=== PATIENT | female | born 1995 | race Caucasian/White ===

== ENCOUNTER 2017-12-03 19:19 | Emergency (ER) | payer SELFPAY ==
[~2017-12-03] VITALS: Ht 172.7 cm; Wt 184.6 kg
[2017-12-03] MEDS ORDERED: OMNICEF300 MG PO (20:54)
== END 2017-12-03 21:15 | disposition home or self-care (01) ==
LOC: ED 19:19 → EDBD 19:24 → ED 21:15
DX: H65.93 Unspecified nonsuppurative otitis media, bilateral (principal); J32.9 Chronic sinusitis, unspecified; F10.10 Alcohol abuse, uncomplicated

== ENCOUNTER 2018-01-29 23:53 | Emergency (ER) | payer OTHER ==
[~2018-01-29] VITALS: Ht 172.7 cm; Wt 2.1 kg
[~2018-01-29 23:53] MED LIST: OMNICEF300 MG PO
[2018-01-30] MEDS ORDERED: AMOXICILLIN500 M2 PO (01:10)
[2018-01-30] MEDS ORDERED: ZOFRAN ODT4 MG SL (01:10)
== END 2018-01-30 01:28 | disposition home or self-care (01) ==
LOC: ED 23:53
DX: J10.1 Influenza due to other identified influenza virus with other respiratory manifestations (principal); H66.92 Otitis media, unspecified, left ear; R19.7 Diarrhea, unspecified

== ENCOUNTER 2018-04-03 07:07 | Emergency (ER) | payer OTHER ==
[~2018-04-03] VITALS: Ht 172.7 cm; Wt 181.9 kg
--- NOTE | ~2018-04-03 | EKG ---
[place], [place] ELECTROCARDIOGRAM REPORT NAME: BULL RODRIGUEZ UNIT #: [id number] ROOM: DOCTOR: KOURTNEY TREVINO MD BIRTHDATE: [birth year] DOS: 04/03/2018 TIME: 0757 hours. FINDINGS: 1. Normal sinus rhythm at 82 beats per minute. 2. The tracing is normal. No previous tracing is available for comparison. KOURTNEY TREVINO MD CM:EKGRPT:ELECTROCARDIOGRAM REPORT [id number] KOURTNEY TREVINO MD
[~2018-04-03 07:07] MED LIST changes: +AMOXICILLIN500 M2 PO; +ZOFRAN ODT4 MG SL
[2018-04-03] MEDS ORDERED: Motrin,Rufen800 MG PO (08:17)
== END 2018-04-03 08:47 | disposition home or self-care (01) ==
LOC: ED 07:07
DX: R09.1 Pleurisy (principal); Z79.899 Other long term (current) drug therapy

== ENCOUNTER 2018-09-25 21:39 | Emergency (ER) | payer OTHER ==
[~2018-09-25] VITALS: Ht 172.7 cm; Wt 178.7 kg
[~2018-09-25 21:39] MED LIST changes: +Motrin,Rufen800 MG PO
== END 2018-09-25 23:29 | disposition home or self-care (01) ==
LOC: ED 21:39
DX: S93.402A Sprain of unspecified ligament of left ankle, initial encounter (principal); W00.0XXA Fall on same level due to ice and snow, initial encounter; Y93.89 Activity, other specified; Y92.89 Other specified places as the place of occurrence of the external cause; Y99.8 Other external cause status

== ENCOUNTER → 2018-10-21 | Outpatient (CLI) | payer OTHER | END | disposition home or self-care (01) | LOC: RAD 17:57 | DX: S93.492A Sprain of other ligament of left ankle, initial encounter (principal); X58.XXXA Exposure to other specified factors, initial encounter; Y93.89 Activity, other specified; Y92.89 Other specified places as the place of occurrence of the external cause; Y99.8 Other external cause status ==